=== PATIENT | female | born 1980 | race Caucasian/White ===

== ENCOUNTER 2016-08-23 10:46 | Emergency (ER) | payer OTHER ==
[~2016-08-23] VITALS: Ht 160 cm; Wt 55.0 kg
[~2016-08-23 10:46] MED LIST: FAMO20; OXYC-360 PO; PRENTAB72 PO; VALT500T OR
[2016-08-23 10:49] VITALS: BP 153/107; PULSE 81; RESP 20; TEMP 98.5; O2SAT 100
--- NOTE | 2016-08-23 10:58 | PD ---
HPI Chief Complaint: Related Problem Time Seen by Provider: 10:58 Travel History International Travel<30 days: No Contact w/Intl Traveler<30days: No Traveled to known affect area: No History of Present Illness HPI 36-year-old 6 weeks gravid by dates female presents to the ED for evaluation of vaginal bleeding. Patient endorses two quarter size blood clots today. She denies fever, chills, nausea, vomiting, abdominal pain, dysuria, back pain. Unsure of her blood type. LMP 07/14. PFSH Past Medical History ?: Social History Alcohol Use: No Tobacco Use: Yes Allergies-Medications (Allergen,Severity, Reaction): Coded Allergies: No Known Allergies (Unverified , 08/23/16) Reported Meds & Prescriptions Reported Meds & Active Scripts Active Reported Valtrex (Valacyclovir HCl) 500 Mg Tab 500 Mg PO DAILY Review of Systems Except as stated in HPI: all other systems reviewed are Neg Physical Exam Narrative GENERAL: Well-nourished, well-developed thin white female in no acute distress. SKIN: Focused skin assessment warm/dry. HEAD: Normocephalic. EYES: No scleral icterus. No injection or drainage. NECK: Supple, trachea midline. No JVD or lymphadenopathy. CARDIOVASCULAR: Regular rate and rhythm without murmurs, gallops, or rubs. RESPIRATORY: Breath sounds equal bilaterally. No accessory muscle use. GASTROINTESTINAL: Abdomen soft, non-tender, nondistended. Mild suprapubic tenderness. Active bowel sounds. MUSCULOSKELETAL: No cyanosis, or edema. BACK: Nontender without obvious deformity. No CVA tenderness. Data Data Last Documented VS Vital Signs Date Time Temp Pulse Resp B/P Pulse Ox O2 Delivery O2 Flow Rate FiO2 08/23/16 11:10 82 18 08/23/16 10:49 98.5 153/107 100 Room Air Orders Beta Hcg (Quant/Titer) (08/23/16 10:53) Urinalysis - C+S If Indicated (08/23/16 10:53) Ed Urine Pregnancytest Poc (08/23/16 10:53) Complete Rh (08/23/16 10:58) Labs Laboratory Tests Test 08/23/16 08/23/16 11:09 11:20 Urine Color LIGHT-YELLOW Urine Turbidity CLEAR Urine pH 7.0 Urine Specific [place] 1.003 Urine Protein NEG mg/dL Urine Glucose (UA) NEG mg/dL Urine Ketones NEG mg/dL Urine Occult Blood SMALL Urine Nitrite NEG Urine Bilirubin NEG Urine Urobilinogen LESS THAN 2.0 MG/DL Urine Leukocyte Esterase NEG Urine RBC LESS THAN 1 /hpf Urine WBC LESS THAN 1 /hpf Urine Squamous Epithelial <1 /hpf Cells Urine Bacteria RARE /hpf Microscopic Urinalysis Comment CULT NOT INDICATED Human Chorionic Gonadotropin, 2 MIU/ML Quant Blood Type O POSITIVE Rho(D) Type POSITIVE MDM Medical Decision Making Medical Screen Exam Complete: Yes Emergency Medical Condition: Yes Differential Diagnosis Vaginal bleeding in versus threatened versus spontaneous versus UTI versus other Narrative Course 36-year-old 6 weeks gravid by dates female presents to the ED for evaluation of vaginal bleeding. Patient endorses two quarter size blood clots today. She denies fever, chills, nausea, vomiting, abdominal pain, dysuria, back pain. Unsure of her blood type. LMP 5/20. Vitals reviewed. Physical exam is unremarkable. ED UPT negative. No indication for culture of the UA. Blood type O positive. Beta hCG 2. I explained to the patient that she is not and this is likely her normal menstrual cycle. She is instructed to follow-up with her MANAGER [employer] for further evaluation. She is stable and discharged home. Diagnosis Primary Impression: Vaginal bleeding Referrals: Commercial Tire Service Technician Disposition: DISCHARGE HOME Condition: Stable Justina Stubbs Aug 23, 2016 10:58
[2016-08-23] MEDS ORDERED: VALT500T PO (11:16)
[2016-08-23 11:50] LABS: BACTERIA, URINE RARE /hpf; BLOOD, URINE SMALL (NEG); GLUCOSE,URINE NEG (NEG); KETONE, URINE NEG (NEG); NITRITE,URINE NEG (NEG); SQUAMOUS EPITHELIAL CELL URINE <1 /hpf (0-5); URINE COLOR LIGHT-YELLOW (YELLW/STRAW)
[2016-08-23 11:51] LABS: COMMENT (UR) CULT NOT INDICATED; CULTURE IF INDICATED CULT NOT INDICATED
[2016-08-23 12:32] LABS: BETA HCG QUANT 2 MIU/ML (0-5)
--- NOTE | 2016-08-23 13:56 | PD ---
Data Data Last Documented VS Vital Signs Date Time Temp Pulse Resp B/P Pulse Ox O2 Delivery O2 Flow Rate FiO2 08/23/16 11:10 82 18 08/23/16 10:49 98.5 153/107 100 Room Air Orders Beta Hcg (Quant/Titer) (08/23/16 10:53) Urinalysis - C+S If Indicated (08/23/16 10:53) Ed Urine Pregnancytest Poc (08/23/16 10:53) Complete Rh (08/23/16 10:58) Labs Laboratory Tests Test 08/23/16 08/23/16 11:09 11:20 Urine Color LIGHT-YELLOW Urine Turbidity CLEAR Urine pH 7.0 Urine Specific [place] 1.003 Urine Protein NEG mg/dL Urine Glucose (UA) NEG mg/dL Urine Ketones NEG mg/dL Urine Occult Blood SMALL Urine Nitrite NEG Urine Bilirubin NEG Urine Urobilinogen LESS THAN 2.0 MG/DL Urine Leukocyte Esterase NEG Urine RBC LESS THAN 1 /hpf Urine WBC LESS THAN 1 /hpf Urine Squamous Epithelial <1 /hpf Cells Urine Bacteria RARE /hpf Microscopic Urinalysis Comment CULT NOT INDICATED Human Chorionic Gonadotropin, 2 MIU/ML Quant Blood Type O POSITIVE Rho(D) Type POSITIVE MDM Supervised Visit with TO: Yes Narrative Course The history, exam, and medical decision-making in the associated mid-level provider note were completed with my assistance. I reviewed and agree with the findings presented. I attest that I had a [id number] encounter with the patient on the same day, and personally performed and documented my assessment and findings in the medical record. *My assessment and Findings: 36-year-old presents with pelvic pain and bleeding bleeding she was . She is not . She looks otherwise well. Recommend outpatient follow-up. Diagnosis Primary Impression: Vaginal bleeding Referrals: Regional Operations Director Patient Instructions: General Instructions Departure Forms: Tests/Procedures Disposition: DISCHARGE HOME Condition: Stable Jeremy Doyle MD Aug 23, 2016 13:56
== END 2016-08-23 13:15 | disposition home or self-care (01) ==
LOC: NEPD 10:46
DX: O46.91 Antepartum hemorrhage, unspecified, first trimester (principal); Z34.91 Encounter for supervision of normal pregnancy, unspecified, first trimester
CPT/HCPCS: 81001; 84702; 84703; 86901; 99283

== ENCOUNTER 2017-07-09 12:10 | Inpatient (IN) | payer OTHER ==
[2017-07-09] VITALS (23 sets, daily range): BP systolic 124–149; BP diastolic 71–114; PULSE 56–104; RESP 16–18; TEMP 96.8–98.3; O2SAT 96–100
[~2017-07-09 12:10] MED LIST changes: -FAMO20; -OXYC-360 PO; -PRENTAB72 PO; -VALT500T OR; +VALT500T PO
--- NOTE | 2017-07-09 13:42 | PD ---
HPI Chief Complaint elevated BP and increased swelling in hands Date Seen: July 09, 2017 Time Seen: 13:37 Travel History International Travel<30 Days: No Contact w/Intl Traveler<30Days: No History of Present Illness HPI Patient is a 37-year-old presented to OB triage from her doctor's office due to elevated blood pressures, swelling in her hands and weight gain. Endorses RAMOS and blurry vision on and off for the past few days. Denies LOF, vaginal bleeding. Reports on and off contractions, currently does not have any contractions. Patient is planning to have a repeat c/s for this on . Pt also reports SOB throughout that is being managed with albuterol inhaler as needed. SOB is not dependent on activity. Weeks Gestation: 37 Para: 1 : 2 History Past Medical History Narrative Medical "hole in heart" diagnosed during this . Patient stated that this will be addressed after she delivers because it is not affecting the . sleep apnea anxiety on zoloft h/o herpes on valtrex, last outbreak 1 yr ago, denies active lesions Obstetric History Obstetric History prior c/s due to pre-eclampsia planned repeat c/s for this Past Surgical History Surgical History: No Previous Surgery Family History Family History: Negative Social History Alcohol Use: Yes (couple glasses of wine during the ) Tobacco Use: No Substance Abuse: No Allergies-Medications (Allergen,Severity, Reaction): Coded Allergies: No Known Allergies (Unverified , 08/23/16) Home Meds Reported Medications Valacyclovir (Valtrex) 500 Mg Tab, 500 MG PO DAILY for Mgmt Viral Infection, # 30 TAB 0 Refills 08/23/16 Review of Systems Except as stated in HPI: all other systems reviewed are Neg Physical Exam Narrative GENERAL: Well-nourished, well-developed patient. SKIN: Warm and dry. HEAD: Normocephalic and atraumatic. EYES: No scleral icterus. No injection or drainage. ENT: No nasal drainage noted. Mucous membranes pink. Airway patent. NECK: Supple, trachea midline. No JVD. CARDIOVASCULAR: Regular rate and rhythm without murmurs, gallops, or rubs. RESPIRATORY: Breath sounds equal bilaterally. No accessory muscle use. ABDOMEN/GI: Abdomen soft, non-tender, bowel sounds present, no rebound, no guarding Gravid to 37/6 weeks size GENITOURINARY: Membranes: intact Uterine Contractions:none FHT's: Category: 1 Baseline: 140 Reactive: yes Variability:moderate Decels: none EXTREMITIES: No cyanosis or edema. BACK: Nontender without obvious deformity. No CVA tenderness. NEUROLOGICAL: Awake and alert. Motor and sensory grossly within normal limits. Five out of 5 muscle strength in all muscle groups. Normal speech. Data Data Vital Signs Reviewed: Yes Orders Orders Vital Signs (Adult) .ON ADMISSION (07/09/17 13:35) ^ Labor Status (07/09/17 13:35) Urinalysis - C+S If Indicated (07/09/17 13:35) ^ Non Stress Test (07/09/17 13:35) Cbc No Diff, Includes Plts (07/09/17 13:35) Comprehensive Metabolic Panel (07/09/17 13:35) Uric Acid (07/09/17 13:35) MDM Medical Record Reviewed: Yes Plan Patient is a 37-year-old presented to OB triage from her doctor's office due to elevated blood pressures, swelling in her hands and weight gain. IUP at 37/6 week gestation 1. continue to monitor VS 2. tracing category 1 2. f/u cbc,cmp, uric acid and p/c ratio Patient with persistent elevated BP ranging from 137-140/101-110. asymptomatic and labs WNL. Delivery planned c/s for tonight per Dr. Piedra assessment f/u pre c/s labs dw Qi Jovel MD, R1 July 09, 2017 13:42
[2017-07-09 14:00] LABS: HEMATOCRIT 42.3 % (35.0-46.0); HEMOGLOBIN 14.4 GM/DL (11.6-15.3); MEAN CELL VOLUME 87.2 FL (80.0-100.0); MEAN CORPUSCULAR HEMOGLOBIN 29.7 PG (27.0-34.0); PLATELET COUNT 170 TH/MM3 (150-450); RED BLOOD COUNT 4.85 MIL/MM3 (4.00-5.30); RED CELL DISTRIBUTION WIDTH 14.3 % (11.6-17.2); WHITE BLOOD COUNT 11.9 TH/MM3 (4.0-11.0)
[2017-07-09 14:14] LABS: BACTERIA, URINE RARE /hpf; BILIRUBIN, URINE NEG (NEG); BLOOD, URINE NEG (NEG); GLUCOSE,URINE NEG (NEG); KETONE, URINE NEG (NEG); NITRITE,URINE NEG (NEG); PH, URINE 6.5 (5.0-8.5); SQUAMOUS EPITHELIAL CELL URINE 1 /hpf (0-5); URINE COLOR LIGHT-YELLOW (YELLW/STRAW); URINE LEUKOCYTE ESTERASE NEG (NEG)
[2017-07-09 14:28] LABS: ALBUMIN 2.8 GM/DL (3.4-5.0); ALT (GPT) 14 U/L (10-53); AST (GOT) 17 U/L (15-37); BICARBONATE 19.1 MEQ/L (21.0-32.0); BLOOD UREA NITROGEN 5 MG/DL (7-18); CALCIUM 9.1 MG/DL (8.5-10.1); CHLORIDE 108 MEQ/L (98-107); CREATININE 0.64 MG/DL (0.50-1.00); GLOMERULAR FILTRATION RATE 104 ML/MIN (>89); GLUCOSE,RANDOM 69 MG/DL (74-106); SODIUM (NA) 138 MEQ/L (136-145)
[2017-07-09 14:29] LABS: ALKALINE PHOSPHATASE 210 U/L (45-117); TOTAL BILIRUBIN ADULT 0.3 MG/DL (0.2-1.0); TOTAL PROTEIN 7.2 GM/DL (6.4-8.2)
--- NOTE | 2017-07-09 14:58 | HHI.HP ---
History & Physical H&P HPI Chief Complaint elevated BP and increased swelling in hands Date Seen: July 09, 2017 Time Seen: 13:37 Travel History International Travel<30 Days: No Contact w/Intl Traveler<30Days: No History of Present Illness HPI Patient is a 37-year-old presented to OB triage from her doctor's office due to elevated blood pressures, swelling in her hands and weight gain. Endorses RAMOS and blurry vision on and off for the past few days. Denies LOF, vaginal bleeding. Reports on and off contractions, currently does not have any contractions. Patient is planning to have a repeat c/s for this on . Pt also reports SOB throughout that is being managed with albuterol inhaler as needed. SOB is not dependent on activity. Weeks Gestation: 37 Para: 1 : 2 History (Limited) History Past Medical History Narrative Medical "hole in heart" diagnosed during this . Patient stated that this will be addressed after she delivers because it is not affecting the . sleep apnea anxiety on zoloft h/o herpes on valtrex, last outbreak 1 yr ago, denies active lesions Obstetric History Obstetric History prior c/s due to pre-eclampsia planned repeat c/s for this Past Surgical History Surgical History: No Previous Surgery Family History Family History: Negative Social History Alcohol Use: Yes (couple glasses of wine during the ) Tobacco Use: No Substance Abuse: No Allergies-Medications Allergies-Medications (Allergen,Severity, Reaction): Coded Allergies: No Known Allergies (Unverified , 08/23/16) Home Meds Reported Medications Valacyclovir (Valtrex) 500 Mg Tab, 500 MG PO DAILY for Mgmt Viral Infection, # 30 TAB 0 Refills 08/23/16 ROS Review of Systems Except as stated in HPI: all other systems reviewed are Neg Physical Exam Physical Exam Narrative GENERAL: Well-nourished, well-developed patient. SKIN: Warm and dry. HEAD: Normocephalic and atraumatic. EYES: No scleral icterus. No injection or drainage. ENT: No nasal drainage noted. Mucous membranes pink. Airway patent. NECK: Supple, trachea midline. No JVD. CARDIOVASCULAR: Regular rate and rhythm without murmurs, gallops, or rubs. RESPIRATORY: Breath sounds equal bilaterally. No accessory muscle use. ABDOMEN/GI: Abdomen soft, non-tender, bowel sounds present, no rebound, no guarding Gravid to 37/6 weeks size GENITOURINARY: Membranes: intact Uterine Contractions:none FHT's: Category: 1 Baseline: 140 Reactive: yes Variability:moderate Decels: none EXTREMITIES: No cyanosis or edema. BACK: Nontender without obvious deformity. No CVA tenderness. NEUROLOGICAL: Awake and alert. Motor and sensory grossly within normal limits. Five out of 5 muscle strength in all muscle groups. Normal speech. Data Data Data Vital Signs Reviewed: Yes Orders Orders Vital Signs (Adult) .ON ADMISSION (07/09/17 13:35) ^ Labor Status (07/09/17 13:35) Urinalysis - C+S If Indicated (07/09/17 13:35) ^ Non Stress Test (07/09/17 13:35) Cbc No Diff, Includes Plts (07/09/17 13:35) Comprehensive Metabolic Panel (07/09/17 13:35) Uric Acid (07/09/17 13:35) MDM MDM Medical Record Reviewed: Yes Plan Patient is a 37-year-old presented to OB triage from her doctor's office due to elevated blood pressures, swelling in her hands and weight gain. IUP at 37/6 week gestation 1. continue to monitor VS 2. tracing category 1 2. f/u cbc,cmp, uric acid and p/c ratio Patient with persistent elevated BP ranging from 137-140/101-110. asymptomatic and labs WNL. Delivery planned c/s for tonight per Dr. Piedra assessment f/u pre c/s labs dw Qi Jovel MD, R1 July 09, 2017 14:58
[2017-07-09] MEDS ORDERED: CITRIC ACID-SODIUM CITRATE LIQ 30 ML UDC ONE (18:44)
[2017-07-09] MEDS ORDERED: LACTATED RINGER'S 1000 ML IV ONE (19:00)
[2017-07-09] MEDS ORDERED: CITRIC ACID-SODIUM CITRATE LIQ 30 ML UDC PO SCH (19:00)
[2017-07-09] MEDS ORDERED: ceFAZolin 2 GM PREMIX 50 ML IV SCH (19:00)
[2017-07-09] MEDS ORDERED: LACTATED RINGER'S 1000 ML IV SCH (19:00)
[2017-07-09] MEDS ORDERED: ACETAMINOPHEN 1000 MG/100 ML 100 ML IV ONE ×2 (19:26→21:00)
[2017-07-09] MEDS ORDERED: MORPHINE SULFATE PF 5 MG/10 ML VIAL ONE (19:26)
--- NOTE | 2017-07-09 19:57 | MH ---
cc: Amor Piedra MD, R John MD DATE OF ADMISSION: 07/09/2017 PREOPERATIVE DIAGNOSIS: 1. Intrauterine at 37+ weeks. 2. Preeclampsia. 3. Previous section. HISTORY OF PRESENT ILLNESS: Ms. Heard is a 37-year-old white female, para 1-0-3-1, whose last menstrual period and dates put her at 37+ weeks. She came to the office today and had markedly elevated blood pressure. This was new for her. We sent her over for preeclamptic workup to the labor floor and she certainly did have preeclampsia. Her blood pressures remained quite elevated. The remainder of her workup was negative. She really had no signs or symptoms. We discussed a versus a repeat section and she really wanted to go ahead with a repeat . She was declining . Also, during this we have had problems with shortness of breath. She has seen a tire debeader and a animation artist without any real reason for the shortness of breath. She had a perfusion lung scan as well. She is being admitted now for a repeat section. PAST OBSTETRICAL HISTORY: She is para 1-0-3-1. She had a previous section for distress and preeclampsia. PAST GYNECOLOGIC HISTORY: Negative. Her Pap smear was negative negative in 11/2016. PAST SURGICAL HISTORY: Remarkable for a section. PAST MEDICAL HISTORY: Remarkable for depression, HSV and breathing problems. ALLERGIES: NO KNOWN DRUG ALLERGIES. CURRENT MEDICATIONS: 1. Zoloft 50 mg 1 p.o. day 2. Valtrex 500 mg 1 p.o. every day, 3. ASA 81 mg 1 p.o. every day. 4. Ventolin HFA 2 puffs p.r.n. shortness of breath q.i.d. 5. vitamins 1 p.o. every day. FAMILY HISTORY: Noncontributory. SOCIAL HISTORY: She is a former smoker. She found out she was and quit. 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 She uses alcohol socially. Denies any drug use. No alcohol during . PHYSICAL EXAMINATION: GENERAL: Well-developed, well-nourished female, in no acute distress. VITAL SIGNS: Her blood pressures are markedly elevated. CHEST: Clear to auscultation and percussion. Her pulse oximeter is excellent. HEART: Has a regular rate and rhythm without murmur. ABDOMEN: Gravid, nontender. There is a well healed Pfannenstiel incision. EXTREMITIES: There is no clubbing, cyanosis. There is mild edema. Her DTRs are +2. There is no clonus. ASSESSMENT AND PLAN: 1. Intrauterine at 37+ weeks. 2. Preeclampsia. 3. Desires repeat section. 4. Shortness of breath. We will keep an eye on this during her hospitalization. R. MD EDLICIA Pozo/ , 07:40 PM , 07:56 PM
[2017-07-09] MEDS ORDERED: ONDANSETRON ODT 4 MG TAB PO PRN (21:00)
[2017-07-09] MEDS ORDERED: SODIUM CHLORIDE 0.9% FLUSH 10 ML FLUSH IV FLUSH SCH (21:00)
[2017-07-09] MEDS ORDERED: OXYTOCIN 30 UNITS-500ML PREMIX 500 ML IV ONE ×2 (21:00)
[2017-07-09] MEDS ORDERED: ZOLPIDEM TARTRATE 5 MG TAB PO PRN (21:00)
[2017-07-09] MEDS ORDERED: oxyCODONE/ACETAMINOPHEN 5 MG/325 MG TAB PO PRN ×2 (21:00)
[2017-07-09] MEDS ORDERED: SIMETHICONE 80 MG CHEWABLE TAB PO PRN (21:00)
[2017-07-09] MEDS ORDERED: SODIUM CHLORIDE 0.9% FLUSH 10 ML FLUSH IV FLUSH PRN (21:00)
[2017-07-09] MEDS ORDERED: EPIDURAL-DIPHENHYDRAMINE HCL 50 MG/ML VIAL IV PUSH PRN (22:45)
[2017-07-09] MEDS ORDERED: EPIDURAL-DO NOT ADMINISTER ANTICOAGULANTS PRN (22:45)
[2017-07-09] MEDS ORDERED: EPIDURAL-NALOXONE HCL 0.4 MG/ML AMP IV PUSH PRN (22:45)
[2017-07-09] MEDS ORDERED: EPIDURAL-NO SYSTEMIC NARCOTICS PRN (22:45)
[2017-07-09] MEDS ORDERED: EPIDURAL-DIPHENHYDRAMINE HCL 50 MG CAP PO PRN (22:45)
[2017-07-10] VITALS: BP 151/94; PULSE 63; RESP 18; TEMP 98.5; O2SAT 97
[2017-07-10] MEDS ORDERED: LACTATED RINGER'S 1000 ML INJ 1,000 ML IV SCH (02:00)
[2017-07-10] MEDS ORDERED: OXYTOCIN 30 UNITS-500ML PREMIX 500 ML IV PRN (02:00)
[2017-07-10] MEDS: IBUPROFEN 600 MG TAB PO PRN ×3 (04:33→16:50)
[2017-07-10] MEDS: ACETAMINOPHEN 1000 MG/100 ML 100 ML IV SCH ×2 (04:34→12:00)
[2017-07-10 05:49] LABS: AUTOMATED NEUTROPHIL # 17.8 TH/MM3 (1.8-7.7); BASOPHIL % 0.1 % (0.0-2.0); HEMATOCRIT 38.9 % (35.0-46.0); HEMOGLOBIN 13.2 GM/DL (11.6-15.3); LYMPH % 6.3 % (9.0-44.0); LYMPHOCYTE # 1.3 TH/MM3 (1.0-4.8); MEAN CELL VOLUME 87.8 FL (80.0-100.0); MEAN CORPUSCULAR HEMOGLOBIN 29.7 PG (27.0-34.0); MEAN CORPUSCULAR HGB CONC 33.9 % (32.0-36.0); MEAN PLATELET VOLUME 11.2 FL (7.0-11.0); MONO % 4.5 % (0.0-8.0); MONOCYTE # 0.9 TH/MM3 (0-0.9); NEUT % 89.1 % (16.0-70.0); PLATELET COUNT 176 TH/MM3 (150-450); RED BLOOD COUNT 4.43 MIL/MM3 (4.00-5.30); RED CELL DISTRIBUTION WIDTH 14.4 % (11.6-17.2)
--- NOTE | 2017-07-10 07:18 | MP ---
cc: Amor Piedra MD DATE OF OPERATION: 07/09/2017 PREOPERATIVE DIAGNOSES: 1. Preeclampsia. 2. Intrauterine at 37+ weeks. POSTOPERATIVE DIAGNOSES: 1. Preeclampsia. 2. Intrauterine at 37+ weeks. 3. Previous section, declines vaginal after . PROCEDURE PERFORMED: Repeat low transverse section. ANESTHESIA: Spinal. SURGEON: Amor Piedra MD. FINDINGS: A viable male infant. Normal uterus, normal tubes, normal ovaries. COMPLICATIONS: None. COUNTS: Correct. ESTIMATED BLOOD LOSS: 600 mL. FLUIDS: Crystalloids. CONDITION: The patient tolerated the procedure well, went to the recovery room in good condition. INDICATIONS FOR THE PROCEDURE: This is a lady who came into the office with markedly high blood pressures and a history of preeclampsia. We sent her over for a preeclamptic workup at the labor floor. Her laboratory workup was normal. She really had no signs or symptoms, but remained markedly hypertensive. The decision was made to proceed with a repeat section. We did discuss again and she politely declined. PROCEDURE IN DETAIL: Under an adequate level of anesthetic, she was prepped and draped for abdominal surgery. The old Pfannenstiel incision was removed and excised completely. Incision was taken down to the fascia. The fascia was taken off the rectus muscle by blunt and sharp dissection. Once this had been accomplished, the rectus muscles were gently stretched and the peritoneum entered under direct vision without incident. A bladder flap was created over the lower uterine segment and the bladder moved out of harms way. The incision over the uterus was made in a transverse manner and taken down in the midline until the uterine cavity was entered. The vertex was grasped and using suction, the infant was delivered with gentle fundal pressure. The hypopharynx and nasopharynx were suctioned and the cord was doubly clamped and cut and the was handed to the resuscitation team present. The placenta was removed manually. The uterus was curettaged twice with wet laps and irrigated with a moderate amount of fluid. The uterine incision was then repaired with 2-0 Vicryl in a running locking fashion, the second layer imbricating the first. Hemostasis was excellent. The cul-de-sac and gutters were then cleaned of blood and debris. Irrigation was clear. At this time, the uterus was delivered back into the abdomen. The rectus muscle was reapproximated with 0 Vicryl in an interrupted fashion. The fascia was repaired from lateral to midline with 0 Vicryl bilaterally with 0 Vicryl in a running fashion. Subcu was repaired with 3-0 Vicryl. The skin was repaired with a 4-0 Monocryl in a subcuticular fashion. Steri-Strips were applied. She tolerated the procedure well and was taken to the Recovery Room in good condition. R. MD DELICIA Pozo/AKASH , 07:00 AM , 07:17 AM
[2017-07-10] MEDS ORDERED: KETOROLAC TROMETHAMINE 30 MG/ML (IVP) VIAL IV PUSH ONE (08:00)
[2017-07-10] MEDS: SERTRALINE HCL 50 MG TAB PO SCH (09:52)
--- NOTE | 2017-07-10 10:02 | HHI.OB ---
Subjective Post Operative Day: 1 Objective Vitals/I&O Vital Signs Date Time Temp Pulse Resp B/P (MAP) Pulse Ox O2 Delivery O2 Flow Rate FiO2 07/10/17 00:00 98.5 63 18 151/94 (113) 97 07/09/17 22:45 149/92 (111) 07/09/17 22:45 98.3 96 18 99 07/09/17 22:16 18 97 07/09/17 22:16 89 131/80 (97) 07/09/17 22:01 83 18 124/77 (93) 96 07/09/17 21:49 129/77 (94) 07/09/17 21:49 87 18 96 07/09/17 21:31 70 18 125/71 (89) 97 07/09/17 21:26 97.7 07/09/17 21:20 126/71 (89) 07/09/17 21:20 56 18 100 07/09/17 21:20 97.6 07/09/17 21:11 96.8 18 100 07/09/17 19:25 67 137/83 (101) 07/09/17 19:24 18 07/09/17 15:41 104 124/93 (103) 07/09/17 15:40 95 126/100 (109) 07/09/17 15:32 16 07/09/17 14:45 88 136/101 (113) 07/09/17 14:30 82 137/101 (113) 07/09/17 14:20 92 140/95 (110) 07/09/17 14:13 90 140/102 (115) 07/09/17 14:00 85 127/110 (116) 07/09/17 13:47 130/93 (105) 07/09/17 13:47 85 07/09/17 13:45 82 07/09/17 13:45 146/114 (125) 07/09/17 13:40 134/95 (108) 07/09/17 13:40 81 07/09/17 13:38 17 07/09/17 13:30 90 136/105 (115) Result Diagram: 07/10/17 0519 07/09/17 1302 Objective Remarks GENERAL: Well-nourished, well-developed patient. CARDIOVASCULAR: Regular rate and rhythm without murmurs, gallops, or rubs. RESPIRATORY: Breath sounds equal bilaterally. slight expiratory wheeze to right lower lobe. No accessory muscle use. ABDOMEN/GI: Abdomen soft, non-tender, bowel sounds present. Incision: Dressing, Clean, dry and intact. Fundus: Firm, non-tender at umbilicus. GENITOURINARY: Light to moderate bleeding. Bustos to BSD clear EXTREMITIES: No cyanosis or edema, non-tender, without signs of DVT, SCD on Medications and IVs Current Medications Medications (Trade) Dose Ordered Sig/Yareli Route Start Time Stop Time Status Last Admin Lactated Ringer's 1,000 ml @ 100 mls/hr Q10H IV 07/10/17 02:00 07/10/17 21:59 Oxytocin 500 ml @ 100 mls/hr UNSCH X1 PRN IV 07/10/17 02:00 07/11/17 01:59 (NS Flush) 2 ml BID IV FLUSH 07/09/17 21:00 (NS Flush) 2 ml UNSCH PRN IV FLUSH 07/09/17 21:00 (Mylicon Chew) 80 mg QID PRN PO 07/09/17 21:00 (Motrin) 600 mg Q6H PRN PO 07/09/17 21:00 07/10/17 04:33 (Percocet 5-325 Mg) 1 tab Q4H PRN PO 07/09/17 21:00 (Percocet 5-325 Mg) 2 tab Q4H PRN PO 07/09/17 21:00 Cefazolin Sodium 1000 mg/Sodium Chloride 100 ml @ 200 mls/hr Q8H IV 07/10/17 04:00 07/10/17 12:29 07/10/17 04:34 (Lauren-Colace) 2 tab Q12H PRN PO 07/09/17 21:00 (Ambien) 5 mg HS PRN PO 07/09/17 21:00 (M-M-R Ii Inj) 0.5 ml ONCE ONCE SQ 07/10/17 16:00 07/10/17 16:01 (Boostrix Inj) 0.5 ml ONCE ONCE IM 07/10/17 16:00 07/10/17 16:01 (Zofran Odt) 4 mg Q6H PRN PO 07/09/17 21:00 07/09/17 23:50 ([facility] [place] Nursing Information) NO SYSTEMIC NARCOTICS TO BE GIVEN FO... UNSCH PRN .XX 07/09/17 22:45 07/10/17 22:44 (Narcan Inj) 0.4 mg UNSCH PRN IV PUSH 07/09/17 22:45 07/10/17 22:44 (Benadryl Inj) 25 mg Q6H PRN IV PUSH 07/09/17 22:45 07/10/17 22:44 07/09/17 23:50 (Benadryl) 50 mg Q6H PRN PO 07/09/17 22:45 07/10/17 22:44 ([facility] [place] Nursing Information) ALL NURSING DEPARTMENTS UNSCH PRN .XX 07/09/17 22:45 07/10/17 22:44 Acetaminophen 100 ml @ 400 mls/hr Q8H IV 07/10/17 04:00 07/10/17 12:14 07/10/17 04:34 (Zoloft) 50 mg DAILY PO 07/10/17 09:00 (Valtrex) 500 mg DAILY PO 07/10/17 09:00 Assessment/Plan Problem List: (1) S/P repeat low transverse ICD Codes: Z98.891 - History of uterine scar from previous surgery Assessment and Plan POD#1 repeat c/section pt doing well taking oral pain medication now bp will continue to monitor, there are a few elevated bustos to bsd clear dressing CDI SCD on pt to getup today and ambulate and shower denies sob, incentive spirometer encouraged bonding well and infant Discharge Planning consider dc in 2 days Dari Salas July 10, 2017 10:02
[2017-07-10] MEDS: valACYclovir HCL 500 MG TAB PO SCH (10:48)
[2017-07-10] MEDS ORDERED: MEASLES, MUMPS, RUBELLA VACCINE 0.5 ML VIAL SQ ONE (16:00)
[2017-07-10] MEDS ORDERED: DIPHTH/TETANUS/ACEL PERTUSSIS (BOOSTER) 0.5 ML VIAL/PFS IM ONE (16:00)
--- NOTE | 2017-07-10 16:45 | HHI.DCPOC ---
Discharge Care Plan Diagnosis: (1) S/P repeat low transverse Your Health Problems Are: delivery Report Symptoms to Your Doctor -Temperature above 100.5 degrees -Redness, of incision or excessive or foul smelling drainage -Unusual pain or calf pain -Increased vaginal bleeding -Painful or difficulty urinating -Feelings of extreme sadness or anxiety after 2 weeks Goals to Promote Your Health * To prevent worsening of your condition and complications * To maintain your health at the optimal level Directions to Meet Your Goals Take your medications as prescribed Follow your dietary instruction Follow activity as directed Ensure plenty of rest for recovery Drink fluids for hydration Keep your appointments as scheduled Take your immunizations and boosters as scheduled If your symptoms worsen call your PCP, if no PCP go to Urgent Care Center or Emergency Room Smoking is Dangerous to Your Health. Avoid second hand smoke Call the 24-hour crisis hotline for domestic abuse at Dari Salas July 10, 2017 16:45
[2017-07-10] MEDS: DOCUSATE SODIUM 50 MG/SENNA 8.6 MG TAB PO PRN (16:50)
[2017-07-10 20:00] VITALS: BP 115/72; PULSE 74; RESP 18; TEMP 98.3; O2SAT 98
[2017-07-10] MEDS ORDERED: MEPERIDINE HCL 50 MG/ML VIAL IV ONE (22:00)
[2017-07-11] MEDS: SERTRALINE HCL 50 MG TAB PO SCH (08:18)
[2017-07-11] MEDS: valACYclovir HCL 500 MG TAB PO SCH (08:18)
[2017-07-11] MEDS: IBUPROFEN 600 MG TAB PO PRN (08:18)
[2017-07-11] MEDS: DOCUSATE SODIUM 50 MG/SENNA 8.6 MG TAB PO PRN (08:18)
[2017-07-11] MEDS ORDERED: IBUPROFEN 800 MG TAB PO PRN (08:45)
--- NOTE | 2017-07-11 09:08 | HHI.OB ---
Subjective Post Operative Day: 2 Objective Vitals/I&O Vital Signs Date Time Temp Pulse Resp B/P (MAP) Pulse Ox O2 Delivery O2 Flow Rate FiO2 07/10/17 20:00 74 18 115/72 (86) 07/10/17 20:00 98.3 98 Result Diagram: 07/10/17 0519 07/09/17 1302 Objective Remarks GENERAL: Well-nourished, well-developed patient. CARDIOVASCULAR: Regular rate and rhythm without murmurs, gallops, or rubs. RESPIRATORY: Breath sounds equal bilaterally. No accessory muscle use. ABDOMEN/GI: Abdomen soft, non-tender, bowel sounds present. Incision: Clean, dry and intact. Fundus: Firm, non-tender at umbilicus. GENITOURINARY: Light to moderate bleeding. EXTREMITIES: No cyanosis or edema, non-tender, without signs of DVT Medications and IVs Current Medications Medications (Trade) Dose Ordered Sig/Yareli Route Start Time Stop Time Status Last Admin (NS Flush) 2 ml BID IV FLUSH 07/09/17 21:00 07/11/17 08:18 (NS Flush) 2 ml UNSCH PRN IV FLUSH 07/09/17 21:00 (Mylicon Chew) 80 mg QID PRN PO 07/09/17 21:00 (Lauren-Colace) 2 tab Q12H PRN PO 07/09/17 21:00 07/11/17 08:18 (Ambien) 5 mg HS PRN PO 07/09/17 21:00 (Zofran Odt) 4 mg Q6H PRN PO 07/09/17 21:00 07/09/17 23:50 (Zoloft) 50 mg DAILY PO 07/10/17 09:00 07/11/17 08:18 (Valtrex) 500 mg DAILY PO 07/10/17 09:00 07/11/17 08:18 (Demerol) 50 mg Q4H PRN PO 07/11/17 08:45 (Motrin) 800 mg Q8H PRN PO 07/11/17 08:45 Assessment/Plan Problem List: (1) S/P repeat low transverse ICD Codes: Z98.891 - History of uterine scar from previous surgery Assessment and Plan POD#2 repeat c/section pt doing well pt had problem managing pain last night, she's feeling better this am, we have adjusted her medication bp stable pt showered last night and denied sob, she's been using incentive spirometry she is passing gas Discharge Planning consider dc today if pain well managed Dari Salas July 11, 2017 09:08
[2017-07-11] MEDS: MEPERIDINE HCL 50 MG TAB PO PRN ×2 (10:57→16:17)
[2017-07-11] MEDS ORDERED: IBUP1TAB7 PO (14:08)
[2017-07-11] MEDS ORDERED: MEPE50TA PO (14:08)
--- NOTE | 2017-07-11 16:30 | HHI.DS ---
Admission Date July 09, 2017 at 15:13 Discharge Date: July 11, 2017 Admitting Diagnosis 37 weeks AMA previous c section pre-eclampsia Diagnosis: (1) S/P repeat low transverse ICD Codes: Z98.891 - History of uterine scar from previous surgery (2) Advanced maternal age (AMA) in (3) Pre-eclampsia ICD Codes: O14.90 - Unspecified pre-eclampsia, unspecified trimester Delivery Date: July 09, 2017 : Repeat : Male Brief History Patient is a 37-year-old presented to OB triage from her doctor's office due to elevated blood pressures, swelling in her hands and weight gain. Endorses RAMOS and blurry vision on and off for the past few days. Denies LOF, vaginal bleeding. Reports on and off contractions, currently does not have any contractions. Patient is planning to have a repeat c/s for this on . Pt also reports SOB throughout that is being managed with albuterol inhaler as needed. SOB is not dependent on activity. previous c section Hospital Course 37 week with pre-eclampsia repeat c section routine care Pt Condition on Discharge: Good Discharge Disposition: Discharge Home Discharge Instructions Diet Instructions: As Tolerated, No Restrictions Additional Diet Instructions: Drink at least 8 - 16 oz bottles of water a day Activities You Can Perform: Shower Only-No Bath Activities to Avoid: Prolonged Standing, Strenuous Activity, Sexual Activity Additional Activity Instruc.: No driving until off pain medications Do not lift anything heavier than your baby in an carrier Follow up Referrals: ACCOUNTANT CERTIFIED PUBLIC - 1 Week @ [facility] [place] New Medications: Ibuprofen (Ibuprofen) 800 Mg Tab 800 MG PO Q8H PRN for cramping, #30 TAB Meperidine (Meperidine) 50 Mg Tab 50 MG PO Q4H PRN for MODERATE PAIN, #20 TAB Dari Salas July 11, 2017 16:30
== END 2017-07-11 17:20 | disposition home or self-care (01) | DRG 765 ==
LOC: HOBED 12:10 → H2EA 15:13 → H1EA 22:26
PROVIDERS: ADMIT Obstetrics & Gynecology; ATTEND Obstetrics & Gynecology
PROC: 10D00Z1 Extraction of Products of Conception, Low, Open Approach (ICD-10-PCS; principal; 2017-07-09)
DX: O14.94 Unspecified pre-eclampsia, complicating childbirth (principal); O98.32 Other infections with a predominantly sexual mode of transmission complicating childbirth; O99.354 Diseases of the nervous system complicating childbirth; O99.344 Other mental disorders complicating childbirth; F41.9 Anxiety disorder, unspecified; G47.30 Sleep apnea, unspecified; O34.211 Maternal care for low transverse scar from previous cesarean delivery; A60.00 Herpesviral infection of urogenital system, unspecified; F32.9 Major depressive disorder, single episode, unspecified; R06.02 Shortness of breath; Z37.0 Single live birth; Z3A.37 37 weeks gestation of pregnancy; Z87.891 Personal history of nicotine dependence
CPT/HCPCS: 36415; 59025; 80053; 80307; 81001; 82570; 84156; 84550; 85025; 85027; 86850; 86900; 86901; 90715; 94150; G0481; J0131; J0690; J1200; J1885; J2175; J2274; J3010; J7120; Q0163

== ENCOUNTER 2017-07-17 12:34 | Emergency (ER) | payer OTHER ==
[~2017-07-17 12:34] MED LIST changes: +IBUP1TAB7 PO; +MEPE50TA PO; -VALT500T PO
[2017-07-17] MEDS ORDERED: ALPRAZolam 0.5 MG TAB PO ONE (13:15)
[2017-07-17 13:38] LABS: AUTOMATED NEUTROPHIL # 5.7 TH/MM3 (1.8-7.7); BASOPHIL # 0.1 TH/MM3 (0-0.2); BASOPHIL % 0.7 % (0.0-2.0); EOSINOPHIL # 0.1 TH/MM3 (0-0.4); EOSINOPHIL % 1.6 % (0.0-4.0); HEMATOCRIT 38.6 % (35.0-46.0); HEMOGLOBIN 12.9 GM/DL (11.6-15.3); LYMPH % 22.8 % (9.0-44.0); LYMPHOCYTE # 1.9 TH/MM3 (1.0-4.8); MEAN CELL VOLUME 87.4 FL (80.0-100.0); MEAN CORPUSCULAR HEMOGLOBIN 29.1 PG (27.0-34.0); MEAN CORPUSCULAR HGB CONC 33.3 % (32.0-36.0); MEAN PLATELET VOLUME 8.3 FL (7.0-11.0); MONO % 7.3 % (0.0-8.0); MONOCYTE # 0.6 TH/MM3 (0-0.9); NEUT % 67.6 % (16.0-70.0); PLATELET COUNT 353 TH/MM3 (150-450); RED BLOOD COUNT 4.42 MIL/MM3 (4.00-5.30); RED CELL DISTRIBUTION WIDTH 14.5 % (11.6-17.2); WHITE BLOOD COUNT 8.5 TH/MM3 (4.0-11.0)
[2017-07-17 13:55] LABS: ALBUMIN 2.9 GM/DL (3.4-5.0); DIRECT BILIRUBIN ADULT 0.1 MG/DL (0.0-0.2)
[2017-07-17 14:01] LABS: INDIRECT BILIRUBIN 0.2 MG/DL (0.0-0.8); TOTAL BILIRUBIN ADULT 0.3 MG/DL (0.2-1.0); TOTAL PROTEIN 6.7 GM/DL (6.4-8.2)
[2017-07-17 15:17] LABS: BILIRUBIN, URINE NEG (NEG); BLOOD, URINE NEG (NEG); GLUCOSE,URINE NEG (NEG); KETONE, URINE NEG (NEG); NITRITE,URINE NEG (NEG); PH, URINE 6.5 (5.0-8.5); URINE COLOR COLORLESS (YELLW/STRAW); URINE LEUKOCYTE ESTERASE NEG (NEG)
--- NOTE | 2017-07-17 16:02 | MB ---
cc: Amor Piedra MD DATE: 07/17/2017 DATE OF EMERGENCY ROOM CONSULTATION: 07/17/2017. HISTORY OF PRESENT ILLNESS: This is a 37-year-old white female who had a normal routine repeat on 07/09/2017. She came to the office today and informed us that the baby had passed. The baby went home normally with the patient, was fine. She woke up and turned the light and the baby was blue. They resuscitated the baby and then they made the baby a DNR because it kept coding. She had a very high blood pressure in the office, I sent her to the Labor Floor for preeclampsia workup, which was negative. Her pressure initially was 178/118. Her last pressures were 146/95, 141/84 and 138/93. I feel like we need to treat this. PHYSICAL EXAMINATION: GENERAL: Well-developed, well-nourished female who is upset. CHEST: Clear to auscultation. CARDIOVASCULAR: Has regular rate and rhythm. ABDOMEN: Soft, nontender. The incision looks excellent. LOWER EXTREMITIES: No significant swelling. ASSESSMENT AND PLAN: 1. Hypertension . We will go ahead and give her some Procardia today and I will see her back in the office in a week. 2. Loss of a week old , uncertain etiology. They are getting an autopsy. We will follow her. In the meantime, I will give her some Xanax for her nerves. Amor Piedra MD RJV/TIMOTHY , 03:35 PM , 04:02 PM
== END 2017-07-17 15:56 | disposition home or self-care (01) ==
LOC: HOBED 12:34
DX: O16.5 Unspecified maternal hypertension, complicating the puerperium (principal)
CPT/HCPCS: 36415; 80076; 81001; 85025